=== PATIENT | female | born 1935 | race Caucasian/White ===

== ENCOUNTER 2018-06-20 05:53 | Inpatient (IN) | payer MEDICARE | END 2018-06-23 18:50 | disposition home health service (06) | LOC: 4CH 06-22 16:47 → DAHIP 05:53 → 2BH 11:36 | DX: C71.9 Malignant neoplasm of brain, unspecified (principal); E03.9 Hypothyroidism, unspecified; E78.5 Hyperlipidemia, unspecified; I10 Essential (primary) hypertension ==

== ENCOUNTER → 2018-07-03 | Outpatient (CLI) | payer MEDICARE ==
[~2018-07-03] MED LIST: CALCIUM PO; HYDR25TA PO; IOHEXOL-350 50ML VIAL IV ONE; LEVO5DRO6 OU; LEVO75TA10 PO; LOSA100T58 PO; MULTIVITAMIN PO; SIMV20TA6 PO; [UNRECOGNIZED DRUG - OTHER] PO
== END | disposition home or self-care (01) ==
LOC: RAH 09:32
PROVIDERS: ATTEND Neurological Surgery
DX: C34.90 Malignant neoplasm of unspecified part of unspecified bronchus or lung (principal); R91.1 Solitary pulmonary nodule; M51.34 Other intervertebral disc degeneration, thoracic region
CPT/HCPCS: 71260; Q9967